=== PATIENT | female | born 1950 | race Hispanic/Latino ===

== ENCOUNTER 2017-04-04 09:06 | Day surgery (SDC) | payer MEDICARE ==
[2017-03-28 14:01] VITALS: BMI 26.8
[2017-04-04 10:30] VITALS: RESP 18
[2017-04-04 11:19] LABS: BASO # 0.03 K/mm3 (0.0-2.0); BASO % 0.4 % (0.0-3.0); EOS # 0.1 (0.0-0.7); EOS % 1.3 % (1.5-5.0); GRAN # 4.81 (1.4-6.5); GRAN % 67.5 % (50.0-68.0); HEMATOCRIT 43.4 % (36.0-48.0); LYMPH # 1.6 (1.2-3.4); LYMPH % 22.9 % (22.0-35.0); MEAN CELL VOLUME 91.4 fl (80.0-105.0); MEAN CORPUSCULAR HEMOGLOBIN 31.2 pg (25.0-35.0); MEAN CORPUSCULAR HGB CONC 34.1 g/dl (31.0-37.0); MEAN PLATELET VOLUME 8.9 fl (7.0-11.0); MONO # 0.6 (0.1-0.6); MONO % 7.9 % (1.0-6.0); RED CELL DISTRIBUTION WIDTH 12.9 % (11.5-14.5); WHITE BLOOD COUNT 7.1 10^3/ul (4.5-11.0)
[2017-04-04 11:29] LABS: INR 0.99 (0.93-1.08)
[2017-04-04] MEDS ORDERED: Midazolam 2 MG/2 ML VIAL ONE (12:03)
[2017-04-04] MEDS ORDERED: Propofol 10 mg/ml Inj (20 ML) ONE ×3 (12:03→12:48)
[2017-04-04] MEDS ORDERED: Etomidate 20 mg/10ml Inj IV ONE (12:03)
[2017-04-04] MEDS ORDERED: Lidocaine 1% Inj (20ml) ONE (12:14)
[2017-04-04] MEDS ORDERED: Sodium Chloride 0.9% 1,000 ML IV SCH (13:15)
[2017-04-04 14:53] VITALS: BP 134/64; PULSE 57; TEMP 97.4; O2SAT 97
== END 2017-04-04 11:45 | disposition home or self-care (01) ==
LOC: ENDO 09:06
PROVIDERS: ATTEND Internal Medicine Gastroenterology
DX: K31.7 Polyp of stomach and duodenum (principal); K44.9 Diaphragmatic hernia without obstruction or gangrene; K29.50 Unspecified chronic gastritis without bleeding; I10 Essential (primary) hypertension; K64.8 Other hemorrhoids; D50.9 Iron deficiency anemia, unspecified; Z86.711 Personal history of pulmonary embolism; Z87.898 Personal history of other specified conditions; Z86.718 Personal history of other venous thrombosis and embolism; Z79.01 Long term (current) use of anticoagulants; K83.8 Other specified diseases of biliary tract; J44.9 Chronic obstructive pulmonary disease, unspecified; K21.9 Gastro-esophageal reflux disease without esophagitis; E03.9 Hypothyroidism, unspecified; Z90.710 Acquired absence of both cervix and uterus
CPT/HCPCS: 36415; 43236; 43239; 43251; 45378; 85025; 85610; 85730; 88305; 88312; 88342; J2250; J2704; J3010

== ENCOUNTER 2017-12-01 08:34 | Day surgery (SDC) | payer MEDICARE ==
[2017-11-27 15:03] VITALS: BMI 25.2
[2017-12-01 09:24] LABS: BASO # 0.02 K/mm3 (0.0-2.0); BASO % 0.3 % (0.0-3.0); EOS # 0.2 (0.0-0.7); EOS % 3.2 % (1.5-5.0); GRAN # 3.6 (1.4-6.5); GRAN % 57.5 % (50.0-68.0); HEMOGLOBIN 13.5 g/dL (12.0-16.0); LYMPH # 1.7 (1.2-3.4); LYMPH % 27.2 % (22.0-35.0); MEAN CELL VOLUME 87.6 fl (80.0-105.0); MEAN CORPUSCULAR HEMOGLOBIN 30.5 pg (25.0-35.0); MEAN CORPUSCULAR HGB CONC 34.8 g/dl (31.0-37.0); MEAN PLATELET VOLUME 8.6 fl (7.0-11.0); MONO # 0.7 (0.1-0.6); MONO % 11.8 % (1.0-6.0); RBC 4.43 10^6/uL (3.5-6.1); RED CELL DISTRIBUTION WIDTH 13.2 % (11.5-14.5); WHITE BLOOD COUNT 6.3 10^3/ul (4.5-11.0)
[2017-12-01 09:53] LABS: PARTIAL THROMBOPLASTIN TIME 30.4 Seconds (25.1-36.5); PROTHROMBIN TIME 11.5 SECONDS (9.4-12.5)
[2017-12-01] MEDS ORDERED: Propofol 10 mg/ml Inj (20 ML) ONE ×2 (10:53→11:39)
[2017-12-01] MEDS ORDERED: Sodium Chloride 0.9% 1,000 ML IV SCH (12:15)
[2017-12-01 14:48] VITALS: BP 133/71; PULSE 62; RESP 16; TEMP 97.9; O2SAT 97
== END 2017-12-01 13:55 | disposition home or self-care (01) ==
LOC: ENDO 08:34
PROVIDERS: ATTEND Internal Medicine Gastroenterology
DX: R93.3 Abnormal findings on diagnostic imaging of other parts of digestive tract (principal); K64.8 Other hemorrhoids; K57.30 Diverticulosis of large intestine without perforation or abscess without bleeding; K63.3 Ulcer of intestine
CPT/HCPCS: 36415; 45380; 85025; 85610; 85730; 88305; J2704; J7030

== ENCOUNTER 2018-05-23 07:04 | Day surgery (SDC) | payer MEDICARE ==
[2017-11-27 15:03] VITALS: BMI 25.2
[2018-05-23] MEDS ORDERED: Iodixanol 320 MG/ML 200 ML BOTTLE IV ONE (07:49)
[2018-05-23] MEDS ORDERED: Iodixanol 320 MG/ML 100 ML BOTTLE IV ONE (07:49)
[2018-05-23] MEDS ORDERED: Phenylephrine 10 mg/ml Inj ONE (07:49)
[2018-05-23] MEDS ORDERED: Nitroglycerin 50mg in D5W 0 MG/0 ML BOTTLE IV ONE (07:49)
[2018-05-23] MEDS ORDERED: Heparin 2,000 ML IV ONE (07:49)
[2018-05-23] MEDS ORDERED: Iohexol 350mgl/ml 50 ML ONE (07:49)
[2018-05-23] MEDS ORDERED: Lidocaine 2% Inj (20ml) ONE ×2 (07:50→09:35)
[2018-05-23 08:05] LABS: INR 0.97; PROTHROMBIN TIME 11.2 SECONDS (9.4-12.5)
[2018-05-23] MEDS ORDERED: Midazolam 2 MG/2 ML VIAL ONE ×2 (09:16→09:24)
[2018-05-23 10:52] VITALS: TEMP 97.8
--- NOTE | 2018-05-23 12:15 | CARDCATH ---
PROCEDURE DATE: 05/23/2018 PROCEDURES: 1. Left and right coronary angiography. 2. Right and left heart catheterization. 3. Right femoral arteriography. 4. Angio-Seal deployment. HISTORY: This is a 67 year old woman with progressive dyspnea, known coronary artery disease, noninvasive workup suggestive of pulmonary hypertension and right and left heart catheterization were advised. INDICATIONS: As above. FINDINGS: HEMODYNAMICS: The right heart pressures were as follows: The RA mean pressure was 3, the RV pressure was 33/5, the PA pressure was 33/8 with a mean pressure of 16, the pulmonary capillary wedge pressure was 7. The cardiac output by thermodilution method was 5.0 L/minute with cardiac index of 2.8 L/min/m2. CORONARY ANGIOGRAPHY: 1. The left main stem was normal. 2. The left anterior descending artery and its branches were normal as well. 3. The left circumflex artery and its branches were normal. 4. The right coronary artery was dominant. This had a mild 30% stenosis after an acute marginal branch. The distal RCA and its branches were normal. LEFT VENTRICULOGRAPHY: A hand injection was performed in that branch revealing normal wall motion with ejection fraction of 70%. There was no aortic valve gradient noted on catheter pull back. Mitral regurgitation was not assessed. RIGHT FEMORAL ARTERIOGRAPHY: The right femoral arteriogram was performed in the FIELDS projection. This revealed no evidence of significant disease and appropriate level of arterial puncture. The puncture site was then closed with deployment of an Angio-Seal device. CONCLUSION: 1. Mild RCA disease. 2. Normal LV systolic function. 3. No evidence of significant pulmonary hypertension. RECOMMENDATIONS: Given the above findings, continue risk factor control is advised and further evaluation for other causes of dyspnea can be entertained. Anthony Pereira MD CC: MD Jorge A Woodward MD MTDD
[2018-05-23 12:25] VITALS: BP 154/78; PULSE 67
[2018-05-23 12:27] VITALS: RESP 18; O2SAT 93
== END 2018-05-23 13:40 | disposition home or self-care (01) ==
LOC: CATH 07:04
PROVIDERS: ATTEND Internal Medicine Cardiovascular Disease
DX: I25.10 Atherosclerotic heart disease of native coronary artery without angina pectoris (principal); R06.00 Dyspnea, unspecified; I10 Essential (primary) hypertension
CPT/HCPCS: 36415; 85610; 86850; 86900; 93460; 99152; 99153; C1760; C1769; C1894; C2629; J1644; J2250; J3010; Q9966

== ENCOUNTER 2018-09-21 11:08 | Outpatient (CLI) | payer MEDICARE | END 2018-09-21 11:09 | disposition home or self-care (01) | LOC: LAB 11:08 ==